=== PATIENT | female | born 1955 | race African-American/Black ===

== ENCOUNTER 2023-05-13 06:28 | Day surgery (SDC) | payer OTHER ==
[2023-04-30 15:46] VITALS: BMI 44.3
[2023-05-13] MEDS ORDERED: LIDOCAINE HCL 1%, 10 MG/ML (20ML VIAL) ONE (07:11)
[2023-05-13] MEDS ORDERED: MIDAZOLAM HCL 2 MG/2 ML SINGLE DOSE VIAL ONE (07:31)
[2023-05-13] MEDS ORDERED: PROPOFOL 20 ML ONE (07:31)
[2023-05-13] MEDS ORDERED: LIDOCAINE HCL/PF 2% SDV 5ML VIAL ONE (07:32)
[2023-05-13] MEDS ORDERED: ceFAZolin SODIUM 1 GM VIAL ONE (07:32)
[2023-05-13] MEDS ORDERED: SODIUM CHLORIDE 0.9% P/F 10 ML VIAL IJ ONE (07:32)
[2023-05-13] MEDS ORDERED: KETOROLAC TROMETHAMINE 30 MG/1 ML VIAL ONE (08:00)
[2023-05-13] MEDS ORDERED: ONDANSETRON 4 MG/2 ML VIAL ONE (08:00)
[2023-05-13] MEDS ORDERED: METOCLOPRAMIDE HCL INJECTION 10 MG/2 ML VIAL ONE (08:00)
[2023-05-13] MEDS ORDERED: PROMETHAZINE HCL 25 MG/1 ML VIAL IVPB PRN (08:25)
[2023-05-13] MEDS ORDERED: ONDANSETRON 4 MG/2 ML VIAL IVPUSH PRN (08:25)
[2023-05-13] MEDS ORDERED: oxyCODONE HCL 5 MG TABLET PO PRN (08:25)
[2023-05-13] MEDS ORDERED: LACTATED RINGERS SOLUTION 1,000 ML IV SCH (08:30)
[2023-05-13 08:50] VITALS: RESP 16
[2023-05-13 08:58] VITALS: TEMP 97.4
[2023-05-13 09:34] VITALS: BP 127/88; PULSE 74
== END 2023-05-13 09:30 | disposition home or self-care (01) ==
LOC: FASU 06:28
PROVIDERS: ATTEND Orthopaedic Surgery
PROC: 0LN80ZZ Release Left Hand Tendon, Open Approach (ICD-10-PCS; principal; 2023-05-13 08:04)
DX: M65.312 Trigger thumb, left thumb (principal)
CPT/HCPCS: 82962; 94760